=== PATIENT | female | born 1990 | race Two or more races ===

== ENCOUNTER 2024-08-01 17:06 | Inpatient (IN) | payer OTHER ==
[2024-08-01 18:43] VITALS: BMI 24.2
[2024-08-01] MEDS ORDERED: TRIMETHOBENZAMIDE HCL 200MG/2ML INJ IM ONE (19:47)
[2024-08-01] MEDS ORDERED: DICYCLOMINE HCL 10 MG CAPSULE PO PRN (19:54)
[2024-08-01] MEDS ORDERED: BENZOCAINE/MENTHOL (CHLORASEPTIC ) LOZENGE MM PRN (19:54)
[2024-08-01] MEDS ORDERED: MAGNESIUM HYDROX 2400MG/30ML ORAL SUSPENSION 30 ML CUP PO PRN (19:54)
[2024-08-01] MEDS ORDERED: ONDANSETRON *ODT* 4 MG TABLET SL PRN (19:54)
[2024-08-01] MEDS ORDERED: BENZONATATE 200 MG CAPSULE PO PRN (19:54)
[2024-08-01] MEDS ORDERED: POLYETHYLENE GLYCOL (HEALTHYLAX) 3350 17 GM PACKET PO PRN (19:54)
[2024-08-01] MEDS ORDERED: NALOXONE (NARCAN) HCL 4 MG/0.1 ML SPRAY NS PRN (19:54)
[2024-08-01] MEDS ORDERED: guaiFENesin 600 MG TABLET.ER (FP) PO PRN (19:54)
[2024-08-01] MEDS ORDERED: BISMUTH SUBSALICYLATE 524 MG/30 ML PO PRN (19:54)
[2024-08-01] MEDS ORDERED: LOPERAMIDE HCL 2 MG CAPSULE PO PRN (19:54)
[2024-08-01] MEDS ORDERED: LORazepam 1 MG TABLET PO PRN (20:01)
[2024-08-01] MEDS: TRIMETHOBENZAMIDE HCL 200MG/2ML INJ IM ONE (20:24)
[2024-08-01] MEDS: LORazepam 2 MG/ML SDV VIAL IM ONE (20:48)
[2024-08-01] MEDS: MELATONIN 5 MG TABLETS PO SCH (22:26)
[2024-08-01] MEDS: ACETAMINOPHEN 325 MG TABLET (FP) PO PRN (22:26)
[2024-08-01] MEDS: LORazepam 2 MG TABLET PO SCH (22:26)
[2024-08-01] MEDS: THIAMINE 100 MG TABLET PO SCH (22:26)
[2024-08-01] MEDS: METHOCARBAMOL 500 MG TABLET PO PRN (22:26)
[2024-08-02] MEDS: IBUPROFEN 600 MG TABLET (FP) PO PRN (06:07)
[2024-08-02] MEDS: NICOTINE 14 MG/24 HOURS TOPICAL PATCH TD SCH (10:23)
[2024-08-02] MEDS: PRENATAL VITAMINS W/ FOLIC ACID TABLET (FP) PO SCH (10:23)
[2024-08-02] MEDS: lamoTRIgine 25 MG TABLET PO SCH (12:11)
[2024-08-02] MEDS: GABAPENTIN 400 MG CAPSULE PO SCH (14:35)
[2024-08-02 15:06] LABS: HEMATOCRIT 35.4 % (32.4-45.2); HEMOGLOBIN 10.8 GM/dL (10.7-15.3); MCH 23.1 pg (25.7-33.7); MCHC 30.5 g/dl (32.0-36.0); MEAN CELL VOLUME 75.8 fl (80-96); PLATELET COUNT 503 10^3/uL (134-434); RBC 4.67 M/mm3 (3.60-5.2); RDW 23.2 % (11.6-15.6); WHITE BLOOD COUNT 6.9 K/mm3 (4.0-10.0)
[2024-08-02 15:12] LABS: CHLORIDE 98 mmol/L (98-107); POTASSIUM 4.1 mmol/L (3.5-5.1); SODIUM 134 mmol/L (136-145)
[2024-08-02 15:18] LABS: CALCIUM 9.9 mg/dL (8.5-10.1)
[2024-08-02 15:19] LABS: ALBUMIN 3.8 g/dl (3.4-5.0); ANION GAP 7 mmol/L (4-13); BLOOD UREA NITROGEN 9.6 mg/dL (7-18); CO2 29 mmol/L (21-32); GLUCOSE,RANDOM 96 mg/dL (74-106)
[2024-08-02 15:22] LABS: CREATININE 0.8 mg/dL (0.55-1.3); SGOT/AST 83 U/L (15-37); SGPT/ALT 50 U/L (13-61)
[2024-08-02 15:24] LABS: BILIRUBIN,TOTAL 0.9 mg/dL (0.2-1); TOT PROT 8.7 g/dl (6.4-8.2)
[2024-08-02 15:25] LABS: ALK PHOS 136 U/L (45-117)
[2024-08-02] MEDS: MAG HYDROX/AL HYDROX/SIMETH 30 ML UNIT-DOSE CUP PO PRN (20:38)
[2024-08-02] MEDS: SUVOREXANT 10 MG TABLET PO PRN (22:02)
[2024-08-03] MEDS: LORazepam 1 MG TABLET PO SCH (05:50)
[2024-08-03] MEDS: NICOTINE POLACRILEX 2 MG GUM BUC PRN (06:47)
[2024-08-03] MEDS: METHYL SALICYLATE/MENTHOL 30 GM TUBE TP SCH (09:34)
[2024-08-03] MEDS: LIDOCAINE 5% TOPICAL PATCH TP SCH (09:35)
[2024-08-03] MEDS: hydrOXYzine PAMOATE 25 MG CAPSULE (FP) PO PRN (09:36)
[2024-08-03] MEDS: SIMETHICONE 80 MG TAB.CHEW (FP) PO SCH (13:27)
[2024-08-03] MEDS: LIDOCAINE PATCH REMOVAL MC SCH (22:11)
[2024-08-04] MEDS ORDERED: LORazepam 0.5 MG TABLET PO PRN
[2024-08-04] MEDS: IBUPROFEN 400 MG TABLET (FP) PO PRN (02:05)
[2024-08-04] MEDS: LORazepam 0.5 MG TABLET PO SCH (05:31)
[2024-08-04] MEDS: hydrOXYzine PAMOATE 50 MG CAPSULE (FP) PO PRN (10:15)
[2024-08-04] MEDS: ACAMPROSATE CALCIUM 333 MG TABLET.DR PO SCH (14:18)
[2024-08-04] MEDS: LIDOCAINE 5% TOPICAL PATCH TP ONE (14:18)
[2024-08-04] MEDS: LIDOCAINE PATCH REMOVAL MC SCH (22:16)
[2024-08-05] MEDS: LORazepam 0.5 MG TABLET PO ONE (05:25)
[2024-08-05 10:27] VITALS: RESP 18
[2024-08-05 13:28] VITALS: BP 127/85; PULSE 90; TEMP 98.2
[2024-08-05] MEDS: NALOXONE (NYS OPIOID OVERDOSE PROGRAM) 4 MG/0.1 ML SPRAY NS PRN (14:09)
== END 2024-08-05 13:45 | disposition home or self-care (01) | DRG 775 ==
LOC: YASAS 17:06 → Y6N 20:26
PROVIDERS: ADMIT Allergy & Immunology; ATTEND Surgery
PROC: HZ2ZZZZ Detoxification Services for Substance Abuse Treatment (ICD-10-PCS; principal; 2024-08-01)
DX: F10.230 Alcohol dependence with withdrawal, uncomplicated (principal); F12.10 Cannabis abuse, uncomplicated; F17.210 Nicotine dependence, cigarettes, uncomplicated; F32.9 Major depressive disorder, single episode, unspecified; F41.9 Anxiety disorder, unspecified; J45.909 Unspecified asthma, uncomplicated; E11.9 Type 2 diabetes mellitus without complications; M54.50 Low back pain, unspecified; G89.29 Other chronic pain; Z56.0 Unemployment, unspecified; Z59.00 Homelessness unspecified
CPT/HCPCS: 36415; 80053; 80305; 80307; 81025; 82962; 85027; 86735; 86780; 93005; 93010